=== PATIENT | female | born 1990 | race Caucasian/White ===

== ENCOUNTER 2019-04-01 11:16 | Emergency (ER) | payer OTHER ==
[2019-04-01 12:18] VITALS: BP 107/63
--- NOTE | 2019-04-01 12:57 | UC ---
Complaint Female HPI - HPI Summary HPI Summary: 28-year-old female who complains of some lower abdominal cramping. She did start her period approximately 2 or 3 days ago. She actually has been in transit from [place] over the past 3 days and she frankly appears exhausted. He states on her drive home from [facility] [place] airport she developed some dysuria where she was urinating frequently and some burning on urination. She is not presently sexually active. She denies any fever or chills or back pain. - History Of Current Complaint Chief Complaint: [facility] Stated Complaint: URINARY COMPLAINT Time Seen by Provider: 04/01/19 12:40 Hx Obtained From: Patient Hx Last Menstrual Period: 04/01/19 ?: No Onset/Duration: Gradual Onset Timing: Intermittent Severity Initially: Mild Severity Currently: Mild Pain Intensity: 6 Character: Burning, Cramping - Patient is approximately 2 or 3 days post starting her menses. Aggravating Factor(s): Urination Associated Signs And Symptoms: Positive: Negative - Allergies/Home Medications Allergies/Adverse Reactions: Allergies Allergy/AdvReac Type Severity Reaction Status Date / Time environmental Allergy Congestion Uncoded 04/01/19 12:18 Home Medications: Home Medications NK [No Home Medications Reported] 04/01/19 [History Confirmed 04/01/19] PMH/Surg Hx/FS Hx/Imm Hx Previously Healthy: Yes - Surgical History Surgical History: Yes Surgery Procedure, Year, and Place: T&A - Family History Known Family History: Positive: Non-Contributory - Social History Occupation: Employed Full-time Lives: With Family Alcohol Use: Occasionally Substance Use Type: None Smoking Status (MU): Never Smoked Tobacco Review of Systems All Other Systems Reviewed And Are Negative: Yes Gastrointestinal: Positive: Abdominal Pain - Patient describes her abdominal pain more as menstrual cramping although she states she is in have a history of menstrual cramping. Genitourinary: Positive: Dysuria Motor: Positive: Negative Neurovascular: Positive: Negative Musculoskeletal: Positive: Negative Neurological: Positive: Negative Psychological: Positive: Negative Is Patient Immunocompromised?: No Physical Exam Triage Information Reviewed: Yes Appearance: Well-Appearing, No Pain Distress, Well-Nourished Vital Signs: Initial Vital Signs Temp 98.9 F 04/01/19 12:11 Pulse 64 04/01/19 12:11 Resp 18 04/01/19 12:11 BP 107/63 04/01/19 12:11 Pulse Ox 100 04/01/19 12:11 Vital Signs Reviewed: Yes Eyes: Positive: Conjunctiva Clear ENT: Positive: Hearing grossly normal, Pharynx normal, TMs normal, Uvula midline Neck: Positive: Supple, Nontender, No Lymphadenopathy Respiratory: Positive: Lungs clear, Normal breath sounds, No respiratory distress, No accessory muscle use Cardiovascular: Positive: RRR, No Murmur, Pulses Normal, Brisk Capillary Refill Abdomen Description: Positive: No Organomegaly, Soft, Other: - She states she has a little epigastric tenderness but no rigidity rebound or guarding. Her discomfort in her lower abdomen is more pelvic area but very minimal.. Negative : CVA Tenderness (R), CVA Tenderness (L), Distended, Guarding, Hepatomegaly, McBurney's Point Tenderness, Splenomegaly Bowel Sounds: Positive: Present Musculoskeletal Exam: Normal Neurological Exam: Normal Psychological Exam: Normal Skin: Positive: Other - Patient has a resolving cold sore on her lower left lip. Complaint Female Dx - Course Course Of Treatment: Urine hCG: Negative Urinalysis: Trace of blood otherwise negative (patient is menstruating) At this point in time I don't feel the patient needs further evaluation in the emergency room. We discussed going home, getting her rest, drinking a lot of fluids and go to the ER if she has any worsening symptoms. I think because she has been in transit from [place] over the past 3 days she is totally exhausted plus she has her period, plus she has cold sore. Her urine was completely negative. She was agreeable to this plan of action knowing that if the abdominal pain worsens or discomfort worsens or she develops fever she is to go to the emergency room. If she continues to have any problems on Thursday she is to follow-up with her primary care provider or [facility] physician. - Differential Dx/Diagnosis Provider Diagnosis: Dysuria Discharge ED - Sign-Out/Discharge Documenting (check all that apply): Patient Departure All imaging exams completed and their final reports reviewed: No Studies - Discharge Plan Condition: Good Disposition: HOME Patient Education Materials: Dysuria (ED) Referrals: Nicole Link, [facility] [Primary Care Provider] - Additional Instructions: Increase fluids, rest, take ibuprofen every 8 hours over the next day or 2 for menstrual cramps. Definite follow-up in the emergency room if you develop worsening abdominal pain, fever, chills, vomiting. Follow-up with your primary care provider on Thursday if no improvement. - Billing Disposition and Condition Condition: GOOD Disposition: Home
== END 2019-04-01 13:15 | disposition home or self-care (01) ==
LOC: MERGE 11:16 → UCEAST 11:16
DX: R30.0 Dysuria (principal); R10.9 Unspecified abdominal pain; Z91.09 Other allergy status, other than to drugs and biological substances
CPT/HCPCS: 81003; 84702; 99211; G0463